=== PATIENT | female | born 2000 | race Caucasian/White ===

== ENCOUNTER 2020-08-16 12:40 | Emergency (ER) | payer OTHER ==
[~2020-08-16] VITALS: Ht 167.6 cm; Wt 84.1 kg
[~2020-08-16 12:40] MED LIST: DIPH-423 PO
[2020-08-16] MEDS ORDERED: IBUP-1984 PO (14:20)
[2020-08-16 14:27] VITALS: BP 110/80
== END 2020-08-16 14:28 | disposition home or self-care (01) ==
LOC: ER 12:41
DX: M79.672 Pain in left foot (principal); F12.90 Cannabis use, unspecified, uncomplicated; Z79.899 Other long term (current) drug therapy
CPT/HCPCS: 73630; 99283

== ENCOUNTER 2021-07-13 21:17 | Emergency (ER) | payer OTHER | END 2021-07-13 22:29 | disposition left against medical advice (07) | LOC: ER 21:18 | DX: Z53.21 Procedure and treatment not carried out due to patient leaving prior to being seen by health care provider (principal) ==

== ENCOUNTER 2023-06-22 14:47 | Emergency (ER) | payer OTHER, MEDICAID ==
[~2023-06-22] VITALS: Ht 167.6 cm; Wt 86.0 kg
[2023-06-22 15:03] VITALS: BP 122/69; PULSE 96; RESP 16; TEMP 98.4; O2SAT 96
[2023-06-22] MEDS ORDERED: AMOX500C2 PO (16:03)
== END 2023-06-22 16:20 | disposition home or self-care (01) ==
LOC: ER 14:47
DX: O99.511 Diseases of the respiratory system complicating pregnancy, first trimester (principal); J20.9 Acute bronchitis, unspecified; O99.321 Drug use complicating pregnancy, first trimester; F12.90 Cannabis use, unspecified, uncomplicated; Z3A.01 Less than 8 weeks gestation of pregnancy; Z79.2 Long term (current) use of antibiotics
CPT/HCPCS: 99283